=== PATIENT | female | born 1940 | race Caucasian/White ===

== ENCOUNTER 2018-05-19 21:16 | Inpatient (IN) ==
[2018-05-19] MEDS ORDERED: Naloxone 0.4 MG/ML INJ IVP PRN (23:53)
[2018-05-19] MEDS ORDERED: Ondansetron 4 MG/2 ML VIAL IVP PRN (23:59)
[2018-05-20] MEDS: 0.9 % Sodium Chloride 1,000 ML IVC SCH ×2 (00:59→11:50)
[2018-05-20 01:05] LABS: Basophils % 0.2 %; Eosinophils # 0.1 K/mcL (0.0-0.6); Eosinophils % 0.7 %; Hemoglobin 11.2 g/dL (11.5-15.4); Immature Granulocytes % 0.4 % (0-4); Lymphocytes # 3.6 K/mcL (0.6-4.6); Lymphocytes % 27.1 %; Mean Corpuscular HGB Conc 32.9 g/dL (31.6-35.5); Mean Corpuscular Hemoglobin 32.2 pg (28.0-33.3); Mean Corpuscular Volume 97.7 fL (83.0-100.0); Mean Platelet Volume 12.7 fL (9.4-12.4); Monocytes # 0.7 K/mcL (0.0-1.3); Monocytes % 5.1 %; Neutrophils # 8.8 K/mcL (1.6-8.9); Platelet Count 121 K/mcL (140-400); Red Blood Count 3.48 M/mcL (3.82-4.97); Red Cell Distribution Width 12.4 % (11.5-14.5); Segmented Neutrophils % 66.5 %
[2018-05-20 01:20] LABS: Prothrombin Time 11.1 Seconds (9.4-12.1)
[2018-05-20 01:22] LABS: Activated Partial Thrombo Time 20.1 Seconds (26.0-36.0)
[2018-05-20 01:39] LABS: Albumin 3.2 g/dL (3.5-5.7); Albumin/Globulin Ratio 1.3 (1.1-2.2); Bilirubin,Total 0.3 mg/dL (0.3-1.0); Calcium 8.7 mg/dL (8.6-10.3); Globulin 2.5 g/dL (2.4-3.5); Potassium 4.5 mEq/L (3.5-5.1); Total Protein 5.7 g/dL (6.4-8.9)
--- NOTE | 2018-05-20 01:49 | Internal Med History&Physical ---
<Betty Pascual - Last Filed: 05/20/18 03:37> Date of Encounter: 05/20/18 Time of Encounter: 01:45 Internal Medicine - H&P: HPI Chief complaint: pre syncopal episode Admitted From: Hospital to Hospital Transfer Plans for Post Hospital Care: Home History of present illness: Ms. Carcamo is a 77 year old female with past medical history of breast cancer, hypertension, security, hypothyroidism, dementia, diabetes, anxiety, COPD, atrial fibrillation with placement of pacemaker. Patient has baseline dementia and is a poor historian. There were no family members at bedside upon my evaluation. Most of history was obtained from records from [facility]: patient arrived [facility] emergency department earlier this evening with chief complaint of weakness, syncopal episode while using commode. Per records, patient was at bedside commode having a bowel movement when she lost all color interface and fell forward. Patient did not hit her head, and was caught by her granddaughter and brought back into bed. At this time, patient reported lightheadedness, nausea, and was dry heaving her granddaughter. Patient was also disoriented and did not know where she was. Her [facility] records, patient has a 3 g drop in hemoglobin from previous labs in February. Hemoglobin dropped from 14-11, and there was concern for GI bleed, which is why patient was transferred to [place]. patient denies nausea, vomiting, diarrhea, fever, chills, chest pain, shortness of breath. she denies hematochezia, melena, hematuria. Unsure how reliable ROS is, as patient appeared to be confused and could not remember events of what happened earlier this evening. At [facility], she was started on bolus of Protonix 80 mg IV followed by Protonix drip. Vitals at [facility] ED were as follows: temperature 97.2, heart rate 70, respirations 19, blood pressure 113/54, oxygen saturation 98% on room air fecal occult blood test done at [facility] was positive for blood Head CT without contrast: mild cerebral white matter chronic microvascular ischemic changes, moderate diffuse cerebral atrophy, right temporal occipital remote infarction. Urinalysis: unremarkable CBC showed WBC 15.2, hemoglobin 11.5 BMP showed creatinine 1.85 INR 1.06 albumin 2.9 EKG showed sinus rhythm with inverted T wave in V1, B2, B3, V4, the 5 Past Med Surg Social Fam HX - Past Medical History Medical history: cancer, CHF, COPD, CVA, dementia, hypertension Additional medical history: htn. copd. pacemaker. dementia. cva Psychiatric history: anxiety, depression - Past Surgical History Surgical History: , cholecystectomy, hysterectomy, pacemaker/AICD, HALLE/BSO Additional surgical history: US Guided Lt Breast Bx (Malignant) 2017. Left modified radical msatectomy 2018 - Social History Smoking Status: Never smoker Smokeless Tobacco Status: No Alcohol use: none Drug use: none - Family History Mother Living Status: Hx Family Cancer: Yes Hx Family Neurologic Disorders: Yes (dementia) Internal Medicine - H&P: Meds Aspirin [Lo-Dose Aspirin EC] 81 mg PO DAILY 07/20/17 [History] Atorvastatin Calcium [Lipitor] 80 mg PO DAILY 07/20/17 [History] Cranberry Fruit [Cranberry] 400 mg PO DAILY 07/20/17 [History] Cyanocobalamin (Vitamin B-12) [Vitamin B12] 2,500 mcg PO DAILY 07/20/17 [History] Dicyclomine [Bentyl] 1 tab PO BID 07/20/17 [History] Diphenoxylate/Atropine [Lomotil 2.5 mg/0.025 mg] 1 tab PO PRN PRN 07/20/17 [History] Donepezil HCl [Aricept] 10 mg PO HS 07/20/17 [History] Melatonin 10 mg PO DAILY 07/20/17 [History] Multivitamin [One Daily Multivitamin] 1 tab PO DAILY 07/20/17 [History] [place]-3/Dha/Epa/Fish Oil [Fish Oil 1,000 mg Softgel] 1 each PO DAILY 07/20/17 [History] Pantoprazole Sodium [Protonix] 40 mg PO DAILY 07/20/17 [History] Levothyroxine [Synthroid] 12.5 mcg PO 0630 08/19/17 [History] Levothyroxine [Synthroid] 50 mcg PO 0630 08/19/17 [History] Metoprolol [Lopressor] 25 mg PO BID 08/19/17 [History] Venlafaxine [Effexor] 150 mg PO DAILY 08/19/17 [History] Docusate Sodium [Colace] 100 mg PO BID PRN #30 capsule 08/20/17 [Rx] Ondansetron ODT [Zofran ODT] 4 mg SL Q4HR PRN #30 tab.rapdis 08/20/17 [Rx] Cholecalciferol (D-3) [Vitamin D] 1,000 unit PO QWEEK 04/07/18 [History] Linagliptin [Tradjenta] 5 mg PO DAILY 05/20/18 [History] Allergy/AdvReac Type Severity Reaction Status Date / Time codeine Allergy Swelling Verified 04/07/18 11:28 of Lip/Tongue/Throat Penicillins Allergy Swelling Verified 04/07/18 11:28 of Lip/Tongue/Throat All Systems PM: A 10-system review of systems was performed and is negative for pertinent findings except as documented above in the HPI. - Constitutional Constitutional: as per HPI - EENT Eyes: as per HPI Ears: as per HPI Nose, mouth and throat: as per HPI - Breasts Breasts: as per HPI - Cardiovascular Cardiovascular ROS IM: as per HPI - Respiratory Respiratory: as per HPI - Gastrointestinal Gastrointestinal: as per HPI - Genitourinary Genitourinary: as per HPI Menstruation: as per HPI - Musculoskeletal Musculoskeletal ROS IM: as per HPI - Integumentary Integumentary IM: as per HPI - Neurological Neurological ROS: as per HPI - Psychiatric Psychiatric: as per HPI - Endocrine Endocrine IM: as per HPI - Hematologic/Lymphatic Hematologic/Lymphatic: as per HPI - Constitutional Vitals: Temp Pulse Resp BP Pulse Ox 98.1 F 80 16 128/85 98 05/19/18 23:49 05/19/18 23:49 05/19/18 23:49 05/19/18 23:49 05/19/18 23:49 General appearance: Present: A&O X 2, no acute distress Exam: alert and oriented to person and place. Appears to be in no acute distress. patient was laying in bed comfortably sleeping upon my exam. - Head Head exam: Present: atraumatic, normocephalic - Eye Eye exam: Present: normal appearance, PERRL, conjuntiva pink, sclera anicteric. Absent: nystagmus, scleral icterus Pupils: Present: PERRL - ENT ENT exam: Present: mucous membranes dry - Neck Neck exam general surgery: Present: supple, trachea midline - Respiratory Respiratory exam: Present: CTAB - Cardiovascular Cardiovascular exam: Present: RRR, +S1, +S2 - GI/Abdominal GI/Abdominal exam: Present: normal bowel sounds, soft, tenderness (mild tenderness to palpation in the epigastric area. ). Absent: distended, guarding, hernia, hepatomegaly - Extremities Exam Extremities exam: Absent: cyanotic, pedal edema - Neurological Exam Neurological exam: Present: alert, strengths equal and symetr throughout. Absent: motor sensory deficit, facial droop, speech deficit - Psychiatric Psychiatric exam: Present: normal affect, normal mood - Skin Skin exam: Present: intact, pallor. Absent: mottled Internal Med - H&P Results - Labs CBC & Chem 7: 05/20/18 00:44 05/20/18 00:44 Labs: Short CBC 05/20/18 Range/Units 00:44 WBC 13.2 H (4.3-11.1) K/mcL Hgb 11.2 L (11.5-15.4) g/dL Hct 34.0 L (35.3-44.9) % Plt Count 121 L (140-400) K/mcL Neutrophils # 8.8 (1.6-8.9) K/mcL BMP 05/20/18 00:44 Sodium 140 Potassium 4.5 Chloride 111 H Carbon Dioxide 16 L BUN 50 H Creatinine 1.69 H Glucose 165 H Calcium 8.7 Liver Function 05/20/18 Range/Units 00:44 Total Bilirubin 0.3 (0.3-1.0) mg/dL AST 17 (13-39) Units/L ALT 11 (7-52) Units/L Alkaline Phosphatase 63 (34-104) Units/L Albumin 3.2 L (3.5-5.7) g/dL - Assessment and plan (1) Near syncope Current Visit: Yes Status: Acute Assessment and plan: 77F transfer from [facility] ED for pre syncopal episode earlier this evening while using beside commode and having a bowel movement. Patient is poor historian due to baseline dementia. History obtained from [facility] ED records. FOBT done at [facility] was positive. There was concern for acute GI bleed because her Hg has dropped to 11 from Hg of 14 a few months ago. Head CT and urinalysis done at [facility] unremarkable. Etiology unclear at this time. Plan: NPO IV PPI BID IVF consult to gastroenterology for possible endoscopy-appreciate recommendations. EPCDs re check H/H with AM labs. Syncope workup with orthostatic vitals, echocardiogram, carotid duplex. EKG reviewed. will check troponin level. keep on telemetry. (2) Positive fecal occult blood test Current Visit: Yes Status: Acute Assessment and plan: plan as above (3) Leukocytosis Current Visit: Yes Status: Acute Assessment and plan: WBC 13.2 UA done at [facility] unremarkable. Patient does not meet sepsis criteria and there is currently no source of infection. Vital signs stable. Plan: get CXR and continue to monitor. Qualifiers: Leukocytosis type: unspecified Qualified Code(s): D72.829 - Elevated white blood cell count, unspecified (4) History of dementia Current Visit: Yes Status: Acute Assessment and plan: continue aricept. patient with baseline dementia, but family is concerned that she is more disoriented from her baseline. CT head done at [facility] was negative. Will check ABG. (5) Type 2 diabetes mellitus Current Visit: Yes Status: Acute Assessment and plan: hold oral diabetes medications. Q4H accuchecks, medium dose sliding scale insulin. Qualifiers: Diabetes mellitus salvage determiner insulin use: without salvage determiner use Diabetes mellitus complication status: with unspecified complications Qualified Code(s): E11.8 - Type 2 diabetes mellitus with unspecified complications (6) CKD (chronic kidney disease) Current Visit: Yes Status: Acute Assessment and plan: history of CKD stage IIIB/IV kidney function currently at baseline. Continue to monitor. Qualifiers: Chronic kidney disease stage: unspecified stage Qualified Code(s): N18.9 - Chronic kidney disease, unspecified (7) Hypothyroidism Current Visit: Yes Status: Acute Assessment and plan: continue home dose synthroid Qualifiers: Hypothyroidism type: unspecified Qualified Code(s): E03.9 - Hypothyroidism, unspecified (8) COPD (chronic obstructive pulmonary disease) Current Visit: Yes Status: Acute Assessment and plan: does not appear to be in acute exacerbation. PRN bronchodilators Qualifiers: COPD type: emphysema Emphysema type: unspecified Qualified Code(s): J43.9 - Emphysema, unspecified (9) DVT prophylaxis Current Visit: Yes Status: Acute Assessment and plan: EPCD - Time Spent With Patient Total time spent is greater than 50% in coordination of care (as documented) at patient's floor/unit and/or counseling patient: <Char Coello - Last Filed: 05/20/18 08:15> Date of Encounter: 05/20/18 Internal Medicine - H&P: HPI History of present illness: Ms. Carcamo is a 77 year old female All Systems PM: A 10-system review of systems was performed and is negative for pertinent findings except as documented above in the HPI. - Constitutional Vitals: Temp Pulse Resp BP Pulse Ox 98.6 F 72 16 115/74 99 05/20/18 07:23 05/20/18 07:23 05/20/18 07:23 05/20/18 07:23 05/20/18 07:23 Internal Med - H&P Results - Labs CBC & Chem 7: 05/20/18 00:44 05/20/18 00:44 Labs: Short CBC 05/20/18 Range/Units 00:44 WBC 13.2 H (4.3-11.1) K/mcL Hgb 11.2 L (11.5-15.4) g/dL Hct 34.0 L (35.3-44.9) % Plt Count 121 L (140-400) K/mcL Neutrophils # 8.8 (1.6-8.9) K/mcL BMP 05/20/18 00:44 Sodium 140 Potassium 4.5 Chloride 111 H Carbon Dioxide 16 L BUN 50 H Creatinine 1.69 H Glucose 165 H Calcium 8.7 Cardiac Enzymes 05/20/18 Range/Units 02:42 Troponin I < 0.03 (< 0.04) ng/mL Liver Function 05/20/18 Range/Units 00:44 Total Bilirubin 0.3 (0.3-1.0) mg/dL AST 17 (13-39) Units/L ALT 11 (7-52) Units/L Alkaline Phosphatase 63 (34-104) Units/L Albumin 3.2 L (3.5-5.7) g/dL - ABG Interpretation ABG results: 05/20/18 04:19 ABG pH 7.38 ABG pCO2 40 ABG pO2 108 H ABG HCO3 24 ABG Total CO2 25 ABG O2 Saturation 98 ABG Base Excess -1 - Time Spent With Patient Total time spent is greater than 50% in coordination of care (as documented) at patient's floor/unit and/or counseling patient: - Attending Attestation I performed a history and physical examination of the patient and discussed his management with the resident. I reviewed the resident's note and agree with the documented findings and plan of care. Per family members, patient appears to be confused and not at her baseline. An ABG was additionally performed in the workup of her Altered mental status; the results of which were normal. Unclear if change in mental status related to anemia given the change from a hemoglobin of [address] scan of the head at [facility] showed ischemic microvascular changes. No focal deficits. Patient has no evidence of an underlying infection. Consider MRI.
[2018-05-20] MEDS ORDERED: Ondansetron ODT 4 MG TAB.RAPDIS SL PRN (02:34)
[2018-05-20] MEDS ORDERED: Ipratropium/Albuterol Neb 3 ML IH PRN (02:49)
[2018-05-20] MEDS ORDERED: D5% in Water 1,000 ML IVC PRN (02:54)
[2018-05-20] MEDS ORDERED: Dextrose Gel 15 GM/37.5 ML TUBE PO PRN ×2 (02:54)
[2018-05-20] MEDS ORDERED: *HR* Dextrose 50 % in Water (Syg) 50 ML SYRINGE IVP PRN (02:54)
[2018-05-20] MEDS ORDERED: Naloxone 0.4 MG/ML INJ IVP PRN (03:14)
[2018-05-20 04:21] LABS: ABG Base Excess -1 mEq/L (-2 to 3); ABG HCO3 24 mEq/L (21-27); ABG Oxygen Saturation 98 % (95-98); ABG PCO2 40 mmHg (35-45); ABG PH 7.38 pH Units (7.32-7.45); ABG PO2 108 mmHg (85-104); ABG TCO2 25 mEq/L (20-26)
[2018-05-20 05:04] LABS: Magnesium 1.7 mg/dL (1.6-2.6); Phosphorous 3.7 mg/dL (2.7-4.5)
[2018-05-20] MEDS ORDERED: Pantoprazole 40 MG VIAL IVP SCH (06:00)
[2018-05-20] MEDS ORDERED: Levothyroxine 25 MCG TABLET PO SCH (06:30)
[2018-05-20 08:51] LABS: Basophils % 0.2 %; Eosinophils # 0.1 K/mcL (0.0-0.6); Hematocrit 34.1 % (35.3-44.9); Hemoglobin 10.9 g/dL (11.5-15.4); Immature Granulocytes % 0.3 % (0-4); Lymphocytes # 2.2 K/mcL (0.6-4.6); Mean Corpuscular Hemoglobin 31.6 pg (28.0-33.3); Mean Corpuscular Volume 98.8 fL (83.0-100.0); Mean Platelet Volume 12.4 fL (9.4-12.4); Monocytes # 0.5 K/mcL (0.0-1.3); Monocytes % 4.5 %; Neutrophils # 7.4 K/mcL (1.6-8.9); Platelet Count 135 K/mcL (140-400); Red Blood Count 3.45 M/mcL (3.82-4.97); Red Cell Distribution Width 12.6 % (11.5-14.5)
[2018-05-20] MEDS ORDERED: Cyanocobalamin (B-12) 1,000 MCG TABLET PO SCH (09:00)
[2018-05-20] MEDS ORDERED: Melatonin 3 MG TABLET PO SCH ×2 (09:00→21:00)
[2018-05-20] MEDS ORDERED: Aspirin Enteric Coated 81 MG Tablet PO SCH (09:00)
[2018-05-20] MEDS: Insulin LISPRO 300 UNITS/3 ML VIAL SQ SCH ×2 (09:03→11:08)
[2018-05-20 09:10] LABS: % Iron Saturation 23 % (15-50); Iron 67 mcg/dL (50-170); Transferrin 210 mg/dL (203-362)
--- NOTE | 2018-05-20 10:34 | Gastroenterology Consult Note ---
<SandroDiego - Last Filed: 05/20/18 10:28> Date of Encounter: 05/20/18 Time of Encounter: 10:28 - Assessment and plan (1) Dysphagia Current Visit: Yes Status: Acute Assessment and plan: Patient's main complaint appears to be dysphagia. She does have some darkening of the stools however hemoglobin relatively stable. We will plan for upper endoscopy today to evaluate for possible sources of upper GI bleed as well as hiatal hernia/stricture causing the patient's symptoms. The patient nothing by mouth. Qualifiers: Dysphagia type: esophageal phase Qualified Code(s): R13.10 - Dysphagia, unspecified - Time Spent With Patient Total time spent is greater than 50% in coordination of care (as documented) at patient's floor/unit and/or counseling patient: GI History of Present Illness - Data of Consult Patient: new to practice Consult date: 05/20/18 Requesting Physician: Liliana Garcia MD - Consult Narrative Reason for consult: Dysphagia History of present illness: Ms. Carcamo is a 77 year old female with history of dementia, hiatal hernia presents with near syncope. Patient has underlying dementia and history was provided by grandson and his at bedside. They state that the patient has been feeling dizzy for the last several days and yesterday while attempting to had a bowel movement nearly passed out. They deny any full syncope. He states she has never had anything like this before. They state that her bowel mo vements have been darker than normal but deny hematemesis, melena, hematochezia. They state that she has been told that she has a "stomach hernia" in the past and has complained of intermittent difficulty swallowing, painful swallowing, and feeling "knots in her stomach" after she eats. Colonoscopy: Never EGD: Never Past Med Surg Social Fam HX - Past Medical History Medical history: cancer, CHF, COPD, CVA, dementia, hypertension Additional medical history: htn. copd. pacemaker. dementia. cva Psychiatric history: anxiety, depression - Past Surgical History Surgical History: , cholecystectomy, hysterectomy, pacemaker/AICD, HALLE/BSO Additional surgical history: US Guided Lt Breast Bx (Malignant) 2017. Left modified radical msatectomy 2018 - Social History Smoking Status: Never smoker Smokeless Tobacco Status: No Alcohol use: none Drug use: none - Family History Mother Living Status: Hx Family Cancer: Yes Hx Family Neurologic Disorders: Yes (dementia) ROS unobtainable: due to mental status - Constitutional Vitals: Temp Pulse Resp BP Pulse Ox 98.6 F 72 16 115/74 99 05/20/18 07:23 05/20/18 07:23 05/20/18 07:23 05/20/18 07:23 05/20/18 07:23 General appearance: Present: A&O X 1, pleasant, no acute distress. Absent: answers questions appropriately - Head Head exam: Present: atraumatic, normal inspection, normocephalic - Eye Eye exam: Present: EOMI, PERRL - ENT ENT exam: Present: mucous membranes moist - Respiratory Respiratory exam: Present: CTAB. Absent: rales, rhonchi, wheezes - Cardiovascular Cardiovascular exam: Present: RRR. Absent: gallop, rubs, systolic murmur - GI/Abdominal GI/Abdominal exam: Present: normal bowel sounds, soft, tenderness (mild epigastric). Absent: distended - Extremities Exam Extremities exam: Present: warm. Absent: pedal edema, tenderness - Skin Skin exam: Present: dry, intact, warm Results - Labs CBC & Chem 7: 05/20/18 08:43 05/20/18 00:44 Labs: Last Result Calcium 8.7 mg/dL (8.6-10.3) 05/20/18 00:44 Iron 67 mcg/dL (50-170) 05/20/18 08:43 % Saturation 23 % (15-50) 05/20/18 08:43 Transferrin 210 mg/dL (203-362) 05/20/18 08:43 Troponin I < 0.03 ng/mL (< 0.04) 05/20/18 02:42 Entire Visit Hgb 10.9 g/dL (11.5-15.4) L 05/20/18 08:43 Hct 34.1 % (35.3-44.9) L 05/20/18 08:43 PT 11.1 Seconds (9.4-12.1) 05/20/18 00:44 Total Bilirubin 0.3 mg/dL (0.3-1.0) 05/20/18 00:44 AST 17 Units/L (13-39) 05/20/18 00:44 ALT 11 Units/L (7-52) 05/20/18 00:44 - ABG ABG results: ABG ABG pH 7.38 pH Units (7.32-7.45) 05/20/18 04:19 ABG pCO2 40 mmHg (35-45) 05/20/18 04:19 ABG pO2 108 mmHg (85-104) H 05/20/18 04:19 ABG O2 Saturation 98 % (95-98) 05/20/18 04:19 PT/INR, D-dimer PT 11.1 Seconds (9.4-12.1) 05/20/18 00:44 Consult Discharge Plan - Plan Referrals: Brando George DO [Primary Care Provider] - <Gilmar Godoy - Last Filed: 05/20/18 12:54> Date of Encounter: 05/20/18 Time of Encounter: 12:00 - Time Spent With Patient Total time spent is greater than 50% in coordination of care (as documented) at patient's floor/unit and/or counseling patient: GI History of Present Illness - Data of Consult Requesting Physician: Liliana Garcia MD - Consult Narrative History of present illness: Ms. Carcamo is a 77 year old female - Constitutional Vitals: Temp Pulse Resp BP Pulse Ox 98.9 F 67 18 119/52 98 05/20/18 11:29 05/20/18 12:21 05/20/18 12:21 05/20/18 12:21 05/20/18 12:21 Results - Labs CBC & Chem 7: 05/20/18 08:43 05/20/18 00:44 Labs: Last Result Calcium 8.7 mg/dL (8.6-10.3) 05/20/18 00:44 Iron 67 mcg/dL (50-170) 05/20/18 08:43 % Saturation 23 % (15-50) 05/20/18 08:43 Transferrin 210 mg/dL (203-362) 05/20/18 08:43 Troponin I < 0.03 ng/mL (< 0.04) 05/20/18 02:42 Entire Visit Hgb 10.9 g/dL (11.5-15.4) L 05/20/18 08:43 Hct 34.1 % (35.3-44.9) L 11 08:43 PT 11.1 Seconds (9.4-12.1) 05/20/18 00:44 Total Bilirubin 0.3 mg/dL (0.3-1.0) 11 00:44 AST 17 Units/L (13-39) 05/20/18 00:44 ALT 11 Units/L (7-52) 05/20/18 00:44 - ABG ABG results: ABG ABG pH 7.38 pH Units (7.32-7.45) 05/20/18 04:19 ABG pCO2 40 mmHg (35-45) 05/20/18 04:19 ABG pO2 108 mmHg (85-104) H 05/20/18 04:19 ABG O2 Saturation 98 % (95-98) 05/20/18 04:19 PT/INR, D-dimer PT 11.1 Seconds (9.4-12.1) 05/20/18 00:44 - Attending Attestation I examined this patient and my medical decision-making was reviewed with the Resident Physician. I agree with the documented findings, disposition and treatment plan as described except to the extent set forth below. Patient seen patient 77-year-old female with Dark stool and dysphagia. Does admit to upper abdominal pain on examination abdomen is soft but has subjective tenderness in the upper abdomen. A: Dysphagia dark stool and mild anemia. Recent imaging did shows hiatal hernia. Recommendation: EGD to rule out esophageal gastric causes for her symptoms/anemia
--- NOTE | 2018-05-20 10:58 | Anesthesia Evaluation PreOp ---
Date of Encounter: 05/20/18 Time of Encounter: 12:14 - Past History Planned Operation: EGD Cardiac History: HTN, Arrhythmia (AFIB), Pacemaker/ICD ([employer] PACEMAKER, AAIR, 85% PACED) Pulmonary History: COPD MANAGEMENT DEPARTMENT CHAIR History: Syncope (THIS ADMISSION), Other (ANXIETY, DEMENTIA) Other Medical History: Renal (CKD 3), Diabetes Type II, GERD (DYSPHAGIA, DARK STOOLS), Other (ANEMIA) Anesthesia History: No Prior Anesthetic Complications, Past Anesthesia (SEVERAL, LEFT MASTECTOMY) Alcohol Use: none Drug use: none Medications and Allergies Aspirin [Lo-Dose Aspirin EC] 81 mg PO DAILY 07/20/17 [History] Atorvastatin Calcium [Lipitor] 80 mg PO DAILY 07/20/17 [History] Cranberry Fruit [Cranberry] 400 mg PO DAILY 07/20/17 [History] Cyanocobalamin (Vitamin B-12) [Vitamin B12] 2,500 mcg PO DAILY 07/20/17 [History] Dicyclomine [Bentyl] 2 cap PO DAILY 07/20/17 [History] Diphenoxylate/Atropine [Lomotil 2.5 mg/0.025 mg] 1 tab PO DAILY PRN 07/20/17 [History] Donepezil HCl [Aricept] 10 mg PO HS 07/20/17 [History] Melatonin 10 mg PO DAILY 07/20/17 [History] Multivitamin [One Daily Multivitamin] 1 tab PO DAILY 07/20/17 [History] [place]-3/Dha/Epa/Fish Oil [Fish Oil 1,000 mg Softgel] 1 each PO DAILY 07/20/17 [History] Levothyroxine [Synthroid] 12.5 mcg PO 30 08/19/17 [History] Levothyroxine [Synthroid] 50 mcg PO 0630 08/19/17 [History] Metoprolol [Lopressor] 25 mg PO BID 08/19/17 [History] Venlafaxine [Effexor] 150 mg PO DAILY 08/19/17 [History] Cholecalciferol (D-3) [Vitamin D] 1,000 unit PO QWEEK 04/07/18 [History] Linagliptin [Tradjenta] 5 mg PO DAILY 05/20/18 [History] Allergy/AdvReac Type Severity Reaction Status Date / Time codeine Allergy Swelling Verified 04/07/18 11:28 of Lip/Tongue/Throat Penicillins Allergy Swelling Verified 04/07/18 11:28 of Lip/Tongue/Throat - Meds/Allergy Pre-op Review Medications Reviewed: Yes Allergies Reviewed: Yes Anesthesia Results - Labs 05/20/18 08:43 05/20/18 00:44 Laboratory Last Values WBC 10.2 K/mcL (4.3-11.1) 05/20/18 08:43 RBC 3.45 M/mcL (3.82-4.97) L 05/20/18 08:43 Hgb 10.9 g/dL (11.5-15.4) L 05/20/18 08:43 Hct 34.1 % (35.3-44.9) L 05/20/18 08:43 MCV 98.8 fL (83.0-100.0) 05/20/18 08:43 MCH 31.6 pg (28.0-33.3) 05/20/18 08:43 MCHC 32.0 g/dL (31.6-35.5) 05/20/18 08:43 RDW 12.6 % (11.5-14.5) 05/20/18 08:43 Plt Count 135 K/mcL (140-400) L 05/20/18 08:43 MPV 12.4 fL (9.4-12.4) 05/20/18 08:43 Immature Gran % 0.3 % (0-4) 05/20/18 08:43 Seg Neutrophils % 72.0 % 05/20/18 08:43 Lymphocytes % 22.0 % 05/20/18 08:43 Monocytes % 4.5 % 05/20/18 08:43 Eosinophils % 1.0 % 05/20/18 08:43 Basophils % 0.2 % 05/20/18 08:43 Neutrophils # 7.4 K/mcL (1.6-8.9) 05/20/18 08:43 Lymphocytes # 2.2 K/mcL (0.6-4.6) 05/20/18 08:43 Monocytes # 0.5 K/mcL (0.0-1.3) 05/20/18 08:43 Eosinophils # 0.1 K/mcL (0.0-0.6) 05/20/18 08:43 Basophils # 0.0 K/mcL (0.0-0.2) 05/20/18 08:43 PT 11.1 Seconds (9.4-12.1) 05/20/18 00:44 INR 1.0 05/20/18 00:44 APTT 20.1 Seconds (26.0-36.0) L 05/20/18 00:44 Sample Site R Radial 05/20/18 04:19 ABG pH 7.38 pH Units (7.32-7.45) 05/20/18 04:19 ABG pCO2 40 mmHg (35-45) 05/20/18 04:19 ABG pO2 108 mmHg (85-104) H 05/20/18 04:19 ABG HCO3 24 mEq/L (21-27) 05/20/18 04:19 ABG Total CO2 25 mEq/L (20-26) 05/20/18 04:19 ABG O2 Saturation 98 % (95-98) 05/20/18 04:19 ABG Base Excess -1 mEq/L (-2 to 3) 05/20/18 04:19 Den Test N/A 05/20/18 04:19 O2 Delivery Device Cannula 05/20/18 04:19 Inspired O2 28.0 (1-15=lpm [id number]=%) 05/20/18 04:19 Sodium 140 mEq/L (136-145) 05/20/18 00:44 Potassium 4.5 mEq/L (3.5-5.1) 05/20/18 00:44 Chloride 111 mEq/L (98-107) H 05/20/18 00:44 Carbon Dioxide 16 mEq/L (23-29) L 05/20/18 00:44 BUN 50 mg/dL (8-23) H 05/20/18 00:44 Creatinine 1.69 mg/dL (0.60-1.20) H 05/20/18 00:44 Est GFR ( Amer) 36 (> 60) L 05/20/18 00:44 Est GFR (Non-Af Amer) 30 (> 60) L 05/20/18 00:44 BUN/Creatinine Ratio 30 (6-26) H 05/20/18 00:44 Glucose 165 mg/dL (70-105) H 05/20/18 00:44 POC Glucose 151 mg/dL (70-99) H 05/19/18 23:48 Calculated Osmolality 307 (280-300) H 05/20/18 00:44 Lactic Acid 0.7 mmol/L (0.5-2.2) 05/20/18 00:44 Calcium 8.7 mg/dL (8.6-10.3) 05/20/18 00:44 Phosphorus 3.7 mg/dL (2.7-4.5) 05/20/18 03:55 Magnesium 1.7 mg/dL (1.6-2.6) 05/20/18 03:55 Iron 67 mcg/dL (50-170) 05/20/18 08:43 % Saturation 23 % (15-50) 05/20/18 08:43 Transferrin 210 mg/dL (203-362) 05/20/18 08:43 Total Bilirubin 0.3 mg/dL (0.3-1.0) 05/20/18 00:44 AST 17 Units/L (13-39) 05/20/18 00:44 ALT 11 Units/L (7-52) 05/20/18 00:44 Alkaline Phosphatase 63 Units/L (34-104) 05/20/18 00:44 Troponin I < 0.03 ng/mL (< 0.04) 05/20/18 02:42 Serum Total Protein 5.7 g/dL (6.4-8.9) L 05/20/18 00:44 Albumin 3.2 g/dL (3.5-5.7) L 05/20/18 00:44 Globulin 2.5 g/dL (2.4-3.5) 05/20/18 00:44 Albumin/Globulin Ratio 1.3 (1.1-2.2) 05/20/18 00:44 Blood Type A POSITIVE 05/20/18 00:44 Antibody Screen NEGATIVE 05/20/18 00:44 Anesthesia Exam Vital Signs/O2 Sat/Glucose, Most Recent Temp Pulse Resp BP Pulse Ox 98.6 F 72 16 115/74 99 05/20/18 07:23 05/20/18 07:23 05/20/18 07:23 05/20/18 07:23 05/20/18 07:23 Blood Glucose* 194 Weight: 79 kg - BMI 29 NPO (# of Hours): 8 - HEENT Mallampati: II Teeth: Normal Oral Opening: Greater than 3 - MANAGEMENT DEPARTMENT CHAIR LOC: Oriented (AA, ORIENTED TO PERSON, ANXIOUS) - Cardiac Rhythm: Regular - Pulmonary Breath Sounds: bilateral Clear Respiratory Effort: Symmetrical Anesthesia Assess/Plan ASA Score: 3 Monitoring Plan: Standard Monitors Recovery Plan: Other Anes Supervising Prov Stmt: Patient informed and consented. Risks, benefits, and alternatives discussed. Patient wishes to proceed.
[2018-05-20] MEDS ORDERED: Lidocaine -MPF 2% 2 ML VIAL ONE (12:01)
[2018-05-20] MEDS ORDERED: *HR* Propofol 200 MG/20 ML VIAL IVP ONE (12:01)
[2018-05-20 16:00] VITALS: BP 107/68
--- NOTE | 2018-05-20 16:18 | Discharge Summary ---
- NOTES TO OUTPATIENT PROVIDER Notes to Outpatient Provider: Follow-up the in one week. follow-up with the heme oncologist in 2 weeks Orders not resulted at time of discharge: Pending orders 05/20/18 03:01 EV carotid duplex imaging BI Routine EV echocardiogram Routine 05/20/18 03:38 XR chest 2V [XR] Routine Date of Encounter: 05/20/18 Time of Encounter: 16:09 - Discharge Diagnosis (1) Dysphagia Priority: Primary Status: Acute Qualifiers: Dysphagia type: esophageal phase Qualified Code(s): R13.10 - Dysphagia, unspecified (2) Failure to thrive in adult Priority: Primary Status: Acute (3) Anemia due to blood loss, acute Priority: Primary Status: Acute (4) CKD (chronic kidney disease) Priority: Secondary Status: Acute Qualifiers: Chronic kidney disease stage: unspecified stage Qualified Code(s): N18.9 - Chronic kidney disease, unspecified (5) COPD (chronic obstructive pulmonary disease) Priority: Secondary Status: Acute Qualifiers: COPD type: emphysema Emphysema type: unspecified Qualified Code(s): J43.9 - Emphysema, unspecified (6) Positive fecal occult blood test Priority: Secondary Status: Acute (7) Type 2 diabetes mellitus Priority: Secondary Status: Acute Qualifiers: Diabetes mellitus long-term insulin use: without terminal makeup operator use Diabetes mellitus complication status: with unspecified complications Qualified Code(s): E11.8 - Type 2 diabetes mellitus with unspecified complications (8) Breast CA Priority: Secondary Status: Acute Qualifiers: Breast location: unspecified site of breast Estrogen receptor status: unspecified Patient sex: female Laterality: left Qualified Code(s): C50.912 - Malignant neoplasm of unspecified site of left female breast Hospital course: Ms. Carcamo is a 77 year old female with past medical history of stage III breast cancer recent left mastectomy by Dr. Irving, hypertension, CKD-3, hypothyroidism, advanced dementia, diabetes, anxiety, COPD, atrial fibrillation with placement of pacemaker patient was taken to [facility] emergency department y/d with chief complaint of weakness, syncopal episode while using commode. Patient was also disoriented and did not know where she was. No loss of consciousness. No seizure activity as per family. Her [facility] records, patient has a 3 g drop in hemoglobin from previous labs in February. Hemoglobin dropped from 14-11, and there was concern for GI bleed, which is why patient was transferred to [place]. Head CT without contrast at [facility] showed mild cerebral white matter chronic microvascular ischemic changes, moderate diffuse cerebral atrophy, right temporal occipital remote infarction. Her Urinalysis: unremarkable EKG showed sinus rhythm with inverted T wave in V1, B2, B3, V4, the 5. Patient was admitted in the hospital she did go for endoscopy this morning which showed gastritis and medium-sized hiatal hernia. At this point we switched her oral PPI. Her altered mental status seems to be most likely due to worsening dementia, however with her recently diagnosed breast cancer concerned about metastatic disease. Unable to do brain MRI due to pacemaker. At this point patient's family also do not want to proceed with any aggressive care. So will discharge her home in a stable condition with home health services. Patient has a medical condition which requires positioning of the body in ways not feasible with an ordinary bed. Elevation of the head/upper body less than 30 degrees does not usually require the use of a hospital bed. Talked to the patient family at bed side and explained to them about current care, as well as answered all their questions. Recommend to follow up with heme oncology as an outpatient.. Our staff arranging for appointment - Time Spent with Patient Total time spent providing and/or coordinating discharge services: - Discharge Medications Prescriptions: Omeprazole [PriLOSEC] 20 mg PO BIDAC #60 capsule.dr Home Medications: Aspirin [Lo-Dose Aspirin EC] 81 mg PO DAILY 07/20/17 [History] Atorvastatin Calcium [Lipitor] 80 mg PO DAILY 07/20/17 [History] Cranberry Fruit [Cranberry] 400 mg PO DAILY 07/20/17 [History] Cyanocobalamin (Vitamin B-12) [Vitamin B12] 2,500 mcg PO DAILY 07/20/17 [History] Dicyclomine [Bentyl] 2 cap PO DAILY 07/20/17 [History] Diphenoxylate/Atropine [Lomotil 2.5 mg/0.025 mg] 1 tab PO DAILY PRN 07/20/17 [History] Donepezil HCl [Aricept] 10 mg PO HS 07/20/17 [History] Melatonin 10 mg PO DAILY 07/20/17 [History] Multivitamin [One Daily Multivitamin] 1 tab PO DAILY 07/20/17 [History] [place]-3/Dha/Epa/Fish Oil [Fish Oil 1,000 mg Softgel] 1 each PO DAILY 07/20/17 [History] Levothyroxine [Synthroid] 12[place] [address]/19/17 [History] Levothyroxine [Synthroid] 50 mcg PO 30 08/19/17 [History] Metoprolol [Lopressor] 25 mg PO BID 08/19/17 [History] Venlafaxine [Effexor] 150 mg PO DAILY 08/19/17 [History] Cholecalciferol (D-3) [Vitamin D] 1,000 unit PO QWEEK 04/07/18 [History] Linagliptin [Tradjenta] 5 mg PO DAILY 05/20/18 [History] Omeprazole [PriLOSEC] 20 mg PO BIDAC #60 capsule. 05/20/18 [Rx] Allergies/Adverse Reactions: Allergy/AdvReac Type Severity Reaction Status Date / Time codeine Allergy Swelling Verified 04/07/18 11:28 of Lip/Tongue/Throat Penicillins Allergy Swelling Verified 04/07/18 11:28 of Lip/Tongue/Throat Date of admission: 05/20/18 04:59 Primary care physician: Brando George DO Consults: 05/20/18 02:39 Consult to Gastroenterology [CONS] Routine Consulting Provider: Gastroenterology Kiana Reason for Consult: Concern for upper GI bleed Call Completed: No - Constitutional Vitals: Temp Pulse Resp BP Pulse Ox 98.6 F 64 16 107/68 93 05/20/18 15:59 05/20/18 15:59 05/20/18 15:59 05/20/18 15:59 05/20/18 15:59 General appearance: Present: A&O X 1, no acute distress Exam: See below - Head Head exam: Present: atraumatic, normal inspection - Neck Neck exam general surgery: Present: supple - Respiratory Respiratory exam: Present: decreased breath sounds. Absent: respiratory distress, rhonchi, wheezes - Cardiovascular Cardiovascular exam: Present: RRR, +S1, +S2. Absent: tachycardia - GI/Abdominal GI/Abdominal exam: Present: normal bowel sounds, soft. Absent: rebound, rigid, tenderness - Extremities Exam Extremities exam: Absent: calf tenderness, pedal edema, tenderness - Back Exam Back exam: Absent: CVA tenderness (L), CVA tenderness (R) - Neurological Exam Neurological exam: Present: alert, altered (Demented) - Psychiatric Psychiatric exam: Present: depressed - Patient Status Disposition: Home Health Service Condition: Fair Overall status at discharge: patient is back to baseline - Discharge Instructions Follow Up With: Brando George DO [Primary Care Provider] - Cristi Barton MD [Partnered Physician] - Additional Instructions: A BSC and hospital bed have been ordered through [employer]. [employer] will call patient's granddaughter when approved and schedule a delivery date and time. If you have any questions for [employer] you can contact them at #[phone]. - Diet and Activity Activity: increase activity as tolerated Diet: advance to your usual diet
--- NOTE | 2018-05-20 16:22 | Physician Discharge Referral ---
Home Health/Hosp Referral Info Transfer to: Home Health Provider in Charge Post Discharge: PCP - Diagnosis (1) Dysphagia Status: Acute (2) Failure to thrive in adult Status: Acute (3) Anemia due to blood loss, acute Status: Acute (4) CKD (chronic kidney disease) Status: Acute (5) COPD (chronic obstructive pulmonary disease) Status: Acute (6) Positive fecal occult blood test Status: Acute (7) Type 2 diabetes mellitus Status: Acute (8) Breast CA Status: Acute - Respiratory Orders Smoking Cessation: Smoking cessation has been advised. For more information, call the [place] Tobacco Quit Line at 7-454-LMXS-NOW. - Services Needed Following services are medically necessary services: Nursing (Please do home visit 3 times a week), Home Health Aide - Transfer Medications Prescriptions: Omeprazole [PriLOSEC] 20 mg PO BIDAC #60 capsule. Home Medications: Aspirin [Lo-Dose Aspirin EC] 81 mg PO DAILY 07/20/17 [History] Atorvastatin Calcium [Lipitor] 80 mg PO DAILY 07/20/17 [History] Cranberry Fruit [Cranberry] 400 mg PO DAILY 07/20/17 [History] Cyanocobalamin (Vitamin B-12) [Vitamin B12] 2,500 mcg PO DAILY 07/20/17 [History] Dicyclomine [Bentyl] 2 cap PO DAILY 07/20/17 [History] Diphenoxylate/Atropine [Lomotil 2.5 mg/0.025 mg] 1 tab PO DAILY PRN 07/20/17 [History] Donepezil HCl [Aricept] 10 mg PO HS 07/20/17 [History] Melatonin 10 mg PO DAILY 07/20/17 [History] Multivitamin [One Daily Multivitamin] 1 tab PO DAILY 07/20/17 [History] [place]-3/Dha/Epa/Fish Oil [Fish Oil 1,000 mg Softgel] 1 each PO DAILY 07/20/17 [History] Levothyroxine [Synthroid] 12.5 mcg PO 30 08/19/17 [History] Levothyroxine [Synthroid] 50 mcg PO 30 08/19/17 [History] Metoprolol [Lopressor] 25 mg PO BID 08/19/17 [History] Venlafaxine [Effexor] 150 mg PO DAILY 08/19/17 [History] Cholecalciferol (D-3) [Vitamin D] 1,000 unit PO QWEEK 04/07/18 [History] Linagliptin [Tradjenta] 5 mg PO DAILY 05/20/18 [History] Omeprazole [PriLOSEC] 20 mg PO BIDAC #60 capsule. 05/20/18 [Rx] Allergies/Adverse Reactions: Allergy/AdvReac Type Severity Reaction Status Date / Time codeine Allergy Swelling Verified 04/07/18 11:28 of Lip/Tongue/Throat Penicillins Allergy Swelling Verified 04/07/18 11:28 of Lip/Tongue/Throat Certification: Further, I certify that my clinical findings support that this patient is homebound (i.e. absences from home require considerable and taxing effort and are for medical reasons or gnosticism services or infrequently or short duration when for other reasons) because: Homebound Reason: Patient requires assistance of a person or device to safely leave home Attestation: My signature below is to certify that this patient is under my care and that I, or nurse practitioner, or a physician's switchboard operator assistant working with me, has a [id number] encounter with this patient.
[2018-05-20] MEDS ORDERED: Insulin LISPRO 300 UNITS/3 ML VIAL SQ SCH (21:00)
[2018-05-21] MEDS ORDERED: Multivit/Ca/Min/Fe/FA 1 TAB TABLET PO SCH (09:00)
== END 2018-05-20 16:39 | disposition home health service (06) | DRG 392 ==
LOC: 3BNU
PROVIDERS: ADMIT Internal Medicine; ATTEND Internal Medicine